=== PATIENT | female | born 1955 | race African-American/Black ===

== ENCOUNTER 2020-03-18 20:27 | Emergency (ER) | payer SELFPAY ==
[~2020-03-18] VITALS: Ht 172.7 cm; Wt 87.0 kg
[2020-03-18 21:57] LABS: BASOPHILS % 0.4 % (0.0-2.0); EOSINOPHILS % 0.1 % (0.0-5.0); HEMATOCRIT. 39.7 % (36.0-48.0); HEMOGLOBIN. 13.3 g/dL (12.0-16.0); LYMPHOCYTES % 12.2 % (20.0-50.0); MEAN CORPUSCULAR HEMOGLOBIN 31.3 pg (28.0-32.0); MEAN CORPUSCULAR VOLUME 93.4 fL (81.0-99.0); MEAN PLATELET VOLUME 10.4 fl (7.4-10.4); MONOCYTES % 5.3 % (2.0-8.0); PLATELET 174 x1000/uL (130-400); RED BLOOD CELL COUNT 4.25 mill/uL (4.2-5.4); RED CELL DISTRIBUTION WIDTH 14.7 % (11.6-14.6)
[2020-03-18 22:04] LABS: CHLORIDE 102 mEq/L (98-107)
[2020-03-18 22:09] LABS: ETHANOL BLOOD < 10 mg/dL
[2020-03-18 23:15] VITALS: BP 193/121
[2020-03-18] MEDS ORDERED: IOHEXOL-350 100 ML BOTTLE ONE (23:22)
== END 2020-03-18 23:36 | disposition short-term general hospital (02) ==
LOC: ER 20:34
DX: I63.9 Cerebral infarction, unspecified (principal); R29.810 Facial weakness; I69.354 Hemiplegia and hemiparesis following cerebral infarction affecting left non-dominant side; E11.9 Type 2 diabetes mellitus without complications; I10 Essential (primary) hypertension
CPT/HCPCS: 36415; 70450; 70496; 80053; 80320; 82962; 85025; 93005; 99285; Q9967; G0480